=== PATIENT | male | born 1985 | race Caucasian/White ===

== ENCOUNTER 2019-07-06 15:15 | Outpatient (CLI) | payer BC, SELFPAY ==
[2019-07-06 16:47] LABS: Free T4 Free Thyroxine 1.31 ng/mL (0.78-2.19)
[2019-07-06 17:02] LABS: Thyroid Stimulating Hormone 0.517 uIU/mL (0.465-4.680)
[2019-07-08 02:00] LABS: Thyroglobulin <0.1 ng/mL (2.8-40.9); Thyroglobulin Antibodies <1 IU/mL (<=1)
== END 2019-07-06 15:16 | disposition home or self-care (01) ==
LOC: ANHWCLAB 15:20
PROVIDERS: Visit Provider Internal Medicine Endocrinology, Diabetes & Metabolism
DX: C73 Malignant neoplasm of thyroid gland (principal); E03.9 Hypothyroidism, unspecified
CPT/HCPCS: 36415; 84432; 84439; 84443; 86800

== ENCOUNTER 2020-07-19 15:18 | Outpatient (CLI) | payer BC, SELFPAY ==
[2020-07-19 16:51] LABS: Free T4 Free Thyroxine 0.65 ng/mL (0.78-2.19)
[2020-07-24 05:29] LABS: Thyroglobulin <0.1 ng/mL (2.8-40.9); Thyroglobulin Antibodies <1 IU/mL (<=1)
== END 2020-07-19 15:19 | disposition home or self-care (01) ==
LOC: ANHWCLAB 15:23
PROVIDERS: Referring Provider Internal Medicine Endocrinology, Diabetes & Metabolism; Visit Provider Internal Medicine Endocrinology, Diabetes & Metabolism
DX: C73 Malignant neoplasm of thyroid gland (principal); E03.9 Hypothyroidism, unspecified
CPT/HCPCS: 36415; 84432; 84439; 84443; 86800